=== PATIENT | male | born 1935 | race Two or more races ===

== ENCOUNTER 2019-04-23 21:26 | Inpatient (IN) | payer OTHER, MEDICARE | END 2019-04-28 16:10 | disposition home health service (06) | LOC: ER 21:26 → TELE 21:27 → TELE-EAST 04-24 11:20 | DX: I13.0 Hypertensive heart and chronic kidney disease with heart failure and stage 1 through stage 4 chronic kidney disease, or unspecified chronic kidney disease (principal); J96.21 Acute and chronic respiratory failure with hypoxia; J18.9 Pneumonia, unspecified organism; I50.43 Acute on chronic combined systolic (congestive) and diastolic (congestive) heart failure; N17.9 Acute kidney failure, unspecified; E44.0 Moderate protein-calorie malnutrition; N18.4 Chronic kidney disease, stage 4 (severe); E87.6 Hypokalemia; D63.1 Anemia in chronic kidney disease; E79.0 Hyperuricemia without signs of inflammatory arthritis and tophaceous disease; E11.21 Type 2 diabetes mellitus with diabetic nephropathy; R31.9 Hematuria, unspecified; I34.0 Nonrheumatic mitral (valve) insufficiency ==